=== PATIENT | male | born 1945 | race Caucasian/White ===

== ENCOUNTER → 2016-10-13 | Day surgery (SDC) | payer OTHER ==
[2016-10-05 10:57] VITALS: Ht 177.8 cm; Wt 118.2 kg
[~2016-10-13] VITALS: Ht 177.8 cm; Wt 118.2 kg
[~2016-10-13] MED LIST: ASPCH81X PO; CYCL0.052 OPB; EFFSR75 PO; EZET10TA63 PO; FLUO40CA8 PO; LIDOCAINE HCL 2% 2 ML VIAL (20MG/ML) ONE; LUTE15CA PO; MULT-845 PO; PRAS1TAB6 PO; PROPOFOL IV EMULSION 10 MG/ML 20 ML VIAL IV ONE; RAMI2.5C PO; ROSU20TA PO; SPRIN/30 INH; VENL150C56 PO
--- NOTE | 2016-10-13 13:43 | Endo History and Physical ---
History & Physical Date of Service: Oct 13, 2016. Chief Complaint: Screening Referring Physician: Dr. Rasheed History of Present Illness For screening colonoscopy Past Surgical History Hx Cardiac Surgery: No Hx Internal Defibrillator: No Hx Pacemaker: No Hx Abdominal Surgery: Yes (HIATAL HERNIA REPAIR-PLASTIC VALVE INSERTED "ANTERIOR GASTROPEXY") Hx of Implantable Prosthesis: No Hx Post-Op Nausea and Vomiting: No Hx Cancer Surgery: No Hx Thoracic Surgery: No Hx Orthopedic: Yes (LEFT ARM FX MANIPULATION) Hx Urinary Tract Surgery: No Family History Colon CA Social History Smoking Status: Never Smoker Hx Substance Use: No Hx Alcohol Use: Yes (OCCASSIONALLY) Allergies Coded Allergies: Clopidogrel (Verified Allergy, Unknown, HIVES AND EAR SWELLING, 10/05/16) Erythromycin (Verified Allergy, Unknown, EARS SWELLING/HOT/SHAKING, ) CAN TOLERATED IF COATED Metformin (Verified Allergy, Unknown, DIZZY/VERTIGO AND HYPOGLYCEMIC, 10/05) Current Medications Reported Home Medications Medications Dose Route/Sig Max Daily Dose Days Date Category Centrum Silver Adult 50+ (Multiple Vitamins W/ Minerals) 1 Tab Tab 1 Tab PO QAM 10/05/16 Reported Restasis (Cyclosporine (Ophth)) 0.05 % Emu 1 Drop OPB BID 10/05/16 Reported Crestor (Rosuvastatin Calcium) 20 Mg Tab 20 Mg PO QPM 10/05/16 Reported Zetia (Ezetimibe) 10 Mg Tab 10 Mg PO QPM 10/05/16 Reported Effient (Prasugrel Hcl) 10 Mg Tab 10 Mg PO QAM 10/05/16 Reported Aspirin Chewable (Aspirin) 81 Mg Chew 81 Mg PO QPM 10/05/16 Reported Prozac (Fluoxetine HCl) 40 Mg Cap 40 Mg PO QAM 10/05/16 Reported Ramipril 2.5 Mg Cap 1 Cap PO QAM 90 10/05/16 Reported Spiriva Handihaler (Tiotropium Eldred) 30 Puff/540 Mcg Aerp 1 Cap INH QAM 10/05/16 Reported Effexor Extended Rel (Venlafaxine Hcl) 150 Mg Cap 150 Mg PO QPM 10/05/16 Reported Effexor Extended Rel (Venlafaxine Hcl) 75 Mg Capcr 75 Mg PO QPM 10/05/16 Reported Lutein (Lutein-Zeaxanthin) 1 Cap Cap 1 Cap PO QAM 10/05/16 Reported Vital Signs Weight (Kilograms): 118.18 Height (Feet): 5 Height (Inches): 10 Physical Exam General Appearance: WD/WN Respiratory/Chest: Respiratory effort: no dyspnea Cardiovascular: Heart Auscultation: RRR Abdomen: Inspection & Palpation: soft Assessment and Plan for screening colonoscopy
--- NOTE | 2016-10-13 14:14 | Discharge Instructions ---
Endoscopy Patient Instructions Date / Procedure(s) Performed Oct 13, 2016. Colonoscopy Allergy Information Coded Allergies: Clopidogrel (Verified Allergy, Unknown, HIVES AND EAR SWELLING, 10/05/16) Erythromycin (Verified Allergy, Unknown, EARS SWELLING/HOT/SHAKING, ) CAN TOLERATED IF COATED Metformin (Verified Allergy, Unknown, DIZZY/VERTIGO AND HYPOGLYCEMIC, 10/05) Discharge Date / Findings Oct 13, 2016. Hemorrhoids, diverticulosis Medication Instructions Restart Stopped Medication(s): resume meds Reported Home Medications Medications Dose Route/Sig Max Daily Dose Days Date Category Centrum Silver Adult 50+ (Multiple Vitamins W/ Minerals) 1 Tab Tab 1 Tab PO QAM 10/05/16 Reported Restasis (Cyclosporine (Ophth)) 0.05 % Emu 1 Drop OPB BID 10/05/16 Reported Crestor (Rosuvastatin Calcium) 20 Mg Tab 20 Mg PO QPM 10/05/16 Reported Zetia (Ezetimibe) 10 Mg Tab 10 Mg PO QPM 10/05/16 Reported Effient (Prasugrel Hcl) 10 Mg Tab 10 Mg PO QAM 10/05/16 Reported Aspirin Chewable (Aspirin) 81 Mg Chew 81 Mg PO QPM 10/05/16 Reported Prozac (Fluoxetine HCl) 40 Mg Cap 40 Mg PO QAM 10/05/16 Reported Ramipril 2.5 Mg Cap 1 Cap PO QAM 90 10/05/16 Reported Spiriva Handihaler (Tiotropium [place]) 30 Puff/540 Mcg Aerp 1 Cap INH QAM 10/05/16 Reported Effexor Extended Rel (Venlafaxine Hcl) 150 Mg Cap 150 Mg PO QPM 10/05/16 Reported Effexor Extended Rel (Venlafaxine Hcl) 75 Mg Capcr 75 Mg PO QPM 10/05/16 Reported Lutein (Lutein-Zeaxanthin) 1 Cap Cap 1 Cap PO QAM 10/05/16 Reported Provider Instructions Activity Restrictions - No exercising or heavy lifting for 24 hours. - Do not drink alcohol the day of the procedure. - Do not drive a car or operate machinery until the day after the procedure. - Do not make any important decisions or sign important papers in 24 hours after the procedure. Following Day: - Return to full activity which may include returning to work/school. Diet Start your diet with liquids and light foods (jello, soup, juice, toast). Then eat your usual diet if not nauseated. Treatment For Common After Affects For mild abdominal pain, bloating, or excessive gas: - Rest - Eat lightly - Lie on right side Follow-Up Information Follow-up with as scheduled Anesthesia Information What You Should Know You have had a procedure that required some medicine to reduce anxiety and discomfort. This treatment is called moderate sedation. After receiving the treatment, you may be sleepy, but you will be able to breathe on your own. The effects of the treatment may last for several hours. Follow these instructions along with Activity/Diet recommendations noted above: * Do NOT do anything where dizziness or clumsiness would be dangerous. * Rest quietly at home today, then you can be up and about tomorrow. * Have a responsible person stay with you the rest of today. * You may have had an I.V. today. If so, you may take the dressing off later today. Recommendations Call your doctor if: * Trouble breathing * Continuous vomiting for more than 24 hours * Temperature above 101 degrees * Severe abdominal pain or bloating * Pain not relieved by pain medicine ordered * There is increased drainage or redness from any incision * A large amount of rectal bleeding greater than 2-3 tablespoons. (If you had a polyp/s removed or have hemorrhoids, a small amount of blood - from the rectum is to be expected.) * You have any unanswered questions or concerns. IN THE EVENT OF A SERIOUS EMERGENCY, GO TO THE NEAREST EMERGENCY ROOM Your discharge instructions were prepared by provider John Jacobsen. Patient Instructions Signature Page Davy Marlow Patient (or Guardian) Signature/Date: I have read and understand the instructions given to me by my caregivers. Caregiver/RN/Doctor Signature/Date: The above-named patient and/or guardian has received patient instructions on this date. + Original Patient Signature Page (only) stays with chart. Please make copy for patient.
--- NOTE | 2016-10-13 14:17 | GI REPORT ---
Procedure Date: 10/13/2016 1:58 PM Procedure: Colonoscopy Indications: Screening for colorectal malignant neoplasm Medicines: Propofol total dose 200 mg IV, Lidocaine 40 mg IV Complications: No immediate complications. Estimated Blood Loss: Estimated blood loss: none. Procedure: Pre-Anesthesia Assessment: - Prior to the procedure, a History and Physical was performed, and patient medications, allergies and sensitivities were reviewed. The patient's tolerance of previous anesthesia was reviewed. - The risks and benefits of the procedure and the sedation options and risks were discussed with the patient. All questions were answered and informed consent was obtained. After I obtained informed consent, the scope was passed under direct vision. Throughout the procedure, the patient's blood pressure, pulse, and oxygen saturations were monitored continuously. The scope was introduced through the anus and advanced to the cecum, identified by appendiceal orifice and ileocecal valve. The colonoscopy was performed without difficulty. The patient tolerated the procedure well. The quality of the bowel preparation was good. Findings: Non-bleeding internal hemorrhoids were found during endoscopy. The hemorrhoids were mild. A few diverticula were found in the sigmoid colon. Impression: - Non-bleeding internal hemorrhoids. - Diverticulosis in the sigmoid colon. - No specimens collected. Recommendation: - Discharge patient to home (ambulatory). - Continue present medications. - Repeat colonoscopy in 10 years for screening purposes. - Return to primary care physician PRN. John Jacobsen M.D. John Jacobsen MD 10/13/2016 2:16:43 PM This report has been signed electronically. Note Initiated On: 10/13/2016 1:58 PM
--- NOTE | 2016-10-13 14:44 | Anesthesiology Progress Note ---
Anesthesia Post Op Note Date & Time Oct 13, 2016 at 14:43 Vital Signs Pain Intensity: 0 Vital Signs Past 12 Hours Date Time Temp Pulse Resp B/P Pulse Ox O2 Delivery O2 Flow Rate FiO2 10/13/16 14:31 73 18 167/74 93 Room Air 10/13/16 14:16 80 18 161/86 93 Room Air 10/13/16 13:44 36.9 80 18 169/98 93 Room Air Notes Mental Status: alert / awake / arousable, participated in evaluation Pt Amnestic to Procedure: Yes Nausea / Vomiting: adequately controlled Pain: adequately controlled Airway Patency, RR, SpO2: stable & adequate BP & HR: stable & adequate Hydration State: stable & adequate Anesthetic Complications: no major complications apparent
[2016-10-13 14:47] VITALS: BP 159/77; PULSE 74; O2SAT 93
== END | disposition home or self-care (01) ==
LOC: C.GI 13:10
PROVIDERS: ATTEND Internal Medicine Gastroenterology
DX: Z12.11 Encounter for screening for malignant neoplasm of colon (principal); K57.30 Diverticulosis of large intestine without perforation or abscess without bleeding; K64.8 Other hemorrhoids; Z80.0 Family history of malignant neoplasm of digestive organs

== ENCOUNTER → 2017-01-16 | Outpatient (CLI) | payer OTHER ==
[~2017-01-16] MED LIST changes: +GADAVIST IV PRN; -LIDOCAINE HCL 2% 2 ML VIAL (20MG/ML) ONE; -PROPOFOL IV EMULSION 10 MG/ML 20 ML VIAL IV ONE
--- NOTE | 2017-01-16 08:46 | DIAGNOSTIC IMAGING REPORT ---
MRI OF THE BRAIN WITHOUT AND WITH IV CONTRAST CLINICAL HISTORY: R25.1 [id number] Gait [id number] COMPARISON STUDY: Noncontrast head CT dated 01/01/2016 TECHNIQUE: MRI of the brain was performed from the vertex to the skull base utilizing various T1 and T2 weighted sequences. Following the IV administration of 11 mL of Gadavist contrast, additional enhanced images were obtained. FINDINGS: Sagittal T1, axial diffusion, proton density and T2 weighted axial, coronal FLAIR, and pre and post axial T1-weighted images were acquired. These were supplemented with post gadolinium coronal T1 weighted images. No intra or extra-axial mass lesions are visualized. Axial diffusion-weighted images reveal no evidence of acute or subacute infarction. There is no evidence of ventricular dilatation. Proton density T2-weighted and FLAIR images reveal scattered foci of increased T2 signal within the white matter, likely on a small vessel basis. There are no abnormal flow voids. There is no evidence of pathologic enhancement. Foci of increased T2 signal within the right mastoid are felt to be inflammatory IMPRESSION: 1. Inflammatory changes in the right mastoid 2. No evidence of intracranial mass 3. No evidence of acute or subacute infarction Electronically signed by: Ralf Artis M.D. 01/16/2017 8:44 AM Dictated Date/Time: 01/16/2017 8:42 AM
== END | disposition home or self-care (01) ==
PROVIDERS: ATTEND Psychiatry & Neurology Neurology
DX: R25.1 Tremor, unspecified (principal); R26.9 Unspecified abnormalities of gait and mobility

== ENCOUNTER → 2017-01-23 | Outpatient (CLI) | payer OTHER ==
[~2017-01-23] MED LIST changes: -GADAVIST IV PRN
--- NOTE | 2017-01-23 11:06 | DIAGNOSTIC IMAGING REPORT ---
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 DISCUSSION: Mild generalized degenerative change of the interphalangeal as well as intercarpal joints. Mild degenerative change of the radial carpal region. Bony mineralization is within normal limits. There is no evidence for soft tissue swelling. IMPRESSION: Mild generalized degenerative change of the articular services. Otherwise negative study. Electronically signed by: Edison Batista M.D. 01/23/2017 11:05 AM Dictated Date/Time: 01/23/2017 11:04 AM
--- NOTE | 2017-01-23 11:17 | DIAGNOSTIC IMAGING REPORT ---
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 DISCUSSION: Moderate degenerative change of the interphalangeal joints throughout. Mild degenerative change of the first and to lesser extent second carpometacarpal joint. Old avulsion ulnar styloid. Bony mineralization is slightly diminished throughout. There is no evidence for soft tissue swelling. IMPRESSION: Moderate generalized degenerative change. Osteopenia. Old avulsion ulnar styloid. Electronically signed by: Edison Batista M.D. 01/23/2017 11:16 AM Dictated Date/Time: 01/23/2017 11:15 AM
[2017-01-23 12:53] LABS: BLOOD UREA NITROGEN 27 mg/dl (7-18)
[2017-01-23 12:57] LABS: RHEUMATOID FACTOR 15.1 U/mL (0-15); TOTAL IRON BINDING CAPACITY 347 mcg/dl (250-450)
== END | disposition home or self-care (01) ==
LOC: C.RAD1850 10:31
PROVIDERS: ATTEND Internal Medicine Rheumatology
DX: M15.9 Polyosteoarthritis, unspecified (principal); M13.0 Polyarthritis, unspecified; R25.1 Tremor, unspecified; R26.9 Unspecified abnormalities of gait and mobility; E11.9 Type 2 diabetes mellitus without complications; M79.1 Myalgia; M19.042 Primary osteoarthritis, left hand; M85.842 Other specified disorders of bone density and structure, left hand

== ENCOUNTER → 2017-03-12 | Outpatient (CLI) | payer OTHER ==
[2017-03-12 11:37] LABS: CHOLESTEROL/HDL RATIO 3.2
== END | disposition home or self-care (01) ==
LOC: C.LABBC 08:05
PROVIDERS: ATTEND Internal Medicine Cardiovascular Disease
DX: E78.5 Hyperlipidemia, unspecified (principal)

== ENCOUNTER → 2017-04-02 | Outpatient (CLI) | payer OTHER ==
--- NOTE | 2017-04-02 12:16 | DIAGNOSTIC IMAGING REPORT ---
CHEST 2 VIEWS ROUTINE CLINICAL HISTORY: 71 years-old Male presenting with COUGH. TECHNIQUE: PA and lateral views of the chest were obtained. COMPARISON: 08/29/2016. FINDINGS: Mildly tortuous descending thoracic aorta. Cardiac silhouette normal in size. Minimal bandlike opacities at the left lung base, possibly scarring or atelectasis. Blunting of the left posterior cardiophrenic angle may indicate trace left effusion. Osseous structures and upper abdomen normal. IMPRESSION: 1. Minimal basilar atelectasis and possible trace left pleural effusion. Electronically signed by: Lalo Suazo 04/02/2017 12:14 PM Dictated Date/Time: 04/02/2017 12:09 PM
== END | disposition home or self-care (01) ==
LOC: C.RAD1850 11:40
PROVIDERS: ATTEND Family Medicine
DX: J44.1 Chronic obstructive pulmonary disease with (acute) exacerbation (principal)

== ENCOUNTER → 2017-04-16 | Outpatient (CLI) | payer OTHER ==
[2017-04-16 12:32] LABS: BASO % 0.2 %; BASO ABS # 0.02 K/uL (0-0.2); COMPLETE YES; EOS % 2.6 %; HEMATOCRIT 47.9 % (42-52); IG% 0.4 %; LYMPH % 17.1 %; LYMPH ABS # 1.46 K/uL (1.2-3.4); MEAN CELL VOLUME 91.9 fL (80-100); MEAN CORPUSCULAR HEMOGLOBIN 31.3 pg (25-34); MEAN PLATELET VOLUME 9.2 fL (7.4-10.4); MONO % 8.6 %; NEUT % 71.1 %; PLATELET COUNT 184 K/uL (130-400); RED BLOOD COUNT 5.21 M/uL (4.7-6.1); WHITE BLOOD COUNT 8.56 K/uL (4.8-10.8)
[2017-04-16 13:43] LABS: AST/SGOT 27 U/L (15-37)
[2017-04-16 13:44] LABS: ALT/SGPT 53 U/L (12-78)
== END | disposition home or self-care (01) ==
LOC: C.LAB1850 11:14
PROVIDERS: ATTEND Internal Medicine Rheumatology
DX: M15.4 Erosive (osteo)arthritis (principal); Z79.899 Other long term (current) drug therapy

== ENCOUNTER → 2017-08-06 | Outpatient (CLI) | payer OTHER ==
[2017-08-06 15:04] LABS: BASO % 0.2 %; BASO ABS # 0.02 K/uL (0-0.2); COMPLETE YES; EOS % 3.7 %; HEMATOCRIT 47.6 % (42-52); IG% 0.4 %; LYMPH % 21.9 %; LYMPH ABS # 1.83 K/uL (1.2-3.4); MEAN CELL VOLUME 94.1 fL (80-100); MEAN CORPUSCULAR HEMOGLOBIN 31.4 pg (25-34); MEAN CORPUSCULAR HGB CONC 33.4 g/dl (32-36); MEAN PLATELET VOLUME 9.6 fL (7.4-10.4); MONO % 9.4 %; NEUT % 64.4 %; PLATELET COUNT 160 K/uL (130-400); RED BLOOD COUNT 5.06 M/uL (4.7-6.1); WHITE BLOOD COUNT 8.37 K/uL (4.8-10.8)
[2017-08-06 15:20] LABS: ALT/SGPT 61 U/L (12-78); AST/SGOT 27 U/L (15-37)
== END | disposition home or self-care (01) ==
LOC: C.LAB1850 13:14
PROVIDERS: ATTEND Internal Medicine Rheumatology
DX: M15.9 Polyosteoarthritis, unspecified (principal); H26.9 Unspecified cataract; Z79.899 Other long term (current) drug therapy; M15.4 Erosive (osteo)arthritis

== ENCOUNTER → 2017-09-04 | Outpatient (CLI) | payer OTHER ==
[2017-09-04 09:58] LABS: CHOLESTEROL/HDL RATIO 2.9
== END | disposition home or self-care (01) ==
LOC: C.LAB1850 07:44
PROVIDERS: ATTEND Internal Medicine Cardiovascular Disease
DX: E78.5 Hyperlipidemia, unspecified (principal)

== ENCOUNTER → 2017-11-19 | Outpatient (CLI) | payer OTHER | END | disposition home or self-care (01) | LOC: C.RDSM 12:00 | PROVIDERS: ATTEND Physical Medicine & Rehabilitation Sports Medicine | DX: M65.30 Trigger finger, unspecified finger (principal); Z88.1 Allergy status to other antibiotic agents; Z88.8 Allergy status to other drugs, medicaments and biological substances ==

== ENCOUNTER → 2018-02-08 | Outpatient (CLI) | payer OTHER ==
--- NOTE | 2018-02-08 14:53 | DIAGNOSTIC IMAGING REPORT ---
ULTRASOUND BILATERAL LOWER EXTREMITY ARTERIAL; ANKLE BRACHIAL INDICES CLINICAL HISTORY: Restless leg syndrome. COMPARISON STUDY: No priors. TECHNIQUE: Real-time, grayscale, and color Doppler sonography of the right and left lower extremities performed from the inguinal crease to the foot. Ankle brachial indices are assessed. FINDINGS: Ankle brachial indices: Right brachial pressure measures 124 and left brachial pressure measures 134. Pressures in the right posterior tibial artery measure 153 for an BHAVANI of 1.14, and pressures in the right dorsalis pedis artery measure 147 for an BHAVANI of 1.10. Pressures in the left posterior tibial artery measure 157 for an BHAVANI of 1.17, and pressures in the left dorsalis pedis artery measure 141 for an BHAVANI of 1.05. Right lower extremity: No significant atherosclerotic plaque is identified. The common femoral artery is patent with normal triphasic waveforms. Velocities in the right common femoral artery measure up to 106 cm/s. There are triphasic arterial waveforms seen throughout the right superficial femoral artery with velocities measuring up to 87 cm/s. The profunda femoris artery is patent with velocities measuring up to 71 cm/s. There are triphasic waveforms in the popliteal artery velocities measuring up to 54 cm/s. There is three-vessel runoff to the foot. Velocities within the calf arteries measure up to 80 cm/s. The dorsalis pedis artery is patent with velocities measuring up to 76 cm/s. Left lower extremity: No significant atherosclerotic plaque is identified. The common femoral artery is patent with normal triphasic arterial waveforms. Velocities within the common femoral artery measure up to 90 cm/s. The profunda femoris artery is patent with velocities measuring up to 56 cm/s. There are triphasic arterial waveforms seen throughout the superficial femoral artery with velocities measuring up to 77 cm/s. There are triphasic waveforms in the popliteal artery velocities measuring up to 52 cm/s. There is three vessel runoff to the left foot. Velocities within the calf arteries measure up to 85 cm/s. The dorsalis pedis artery is patent with velocities measuring up to 95 cm/s. IMPRESSION: 1. Unremarkable Doppler assessment of the right and left lower extremity arteries. 2. Ankle brachial indices as above. Dictated: 02/08/2018 2:17 PM Transcribed: 02/08/2018 2:52 PM Hesham Electronically signed by: Mono Harris M.D. 02/08/2018 2:59 PM Dictated Date/Time: 02/08/2018 2:17 PM
== END | disposition home or self-care (01) ==
LOC: C.ULTR 13:04
PROVIDERS: ATTEND Family Medicine
DX: G25.81 Restless legs syndrome (principal)

== ENCOUNTER → 2018-04-30 | Outpatient (CLI) | payer OTHER ==
--- NOTE | 2018-04-30 11:22 | DIAGNOSTIC IMAGING REPORT ---
CHEST 2 VIEWS ROUTINE CLINICAL HISTORY: PNEUMONIA dyspnea COMPARISON STUDY: 04/01/2018 FINDINGS: Minimal platelike atelectasis left base. Lungs otherwise are clear. Diaphragms are smooth. Pulmonary apices are clear. IMPRESSION: Minimal atelectasis left base. Otherwise negative chest. The above report was generated using voice recognition software. It may contain grammatical, syntax or spelling errors. Electronically signed by: Eidson Batista M.D. 04/30/2018 11:20 AM Dictated Date/Time: 04/30/2018 11:19 AM
[2018-04-30 12:34] LABS: BASO % 0.4 %; BASO ABS # 0.03 K/uL (0-0.2); EOS ABS # 0.24 K/uL (0-0.5); HEMOGLOBIN 15.7 g/dL (14.0-18.0); IG# 0.05 K/uL (0.00-0.02); LYMPH % 21.1 %; MEAN CELL VOLUME 92.9 fL (80-100); MEAN CORPUSCULAR HGB CONC 33.4 g/dl (32-36); MEAN PLATELET VOLUME 9.4 fL (7.4-10.4); MONO % 10.7 %; MONO ABS # 0.86 K/uL (0.11-0.59); NEUT % 64.2 %; NEUT ABS # 5.17 K/uL (1.4-6.5); PLATELET COUNT 191 K/uL (130-400); RED CELL DISTRIBUTION WIDTH CV 14.3 % (11.5-14.5); RED CELL DISTRIBUTION WIDTH SD 48.4 fL (36.4-46.3); WHITE BLOOD COUNT 8.05 K/uL (4.8-10.8)
[2018-04-30 12:51] LABS: ALBUMIN 3.4 gm/dl (3.4-5.0); ALKALINE PHOSPHATASE 73 U/L (45-117); ALT/SGPT 50 U/L (12-78); AST/SGOT 23 U/L (15-37); CREATININE 1.12 mg/dl (0.60-1.40)
== END | disposition home or self-care (01) ==
LOC: C.RAD1850 11:03
PROVIDERS: ATTEND Physician Assistant Medical
DX: J18.9 Pneumonia, unspecified organism (principal); M15.4 Erosive (osteo)arthritis; Z79.899 Other long term (current) drug therapy; M79.669 Pain in unspecified lower leg